=== PATIENT | male | born 1955 | race Caucasian/White ===

== ENCOUNTER → 2016-10-24 | Outpatient (CLI) | payer MEDICARE, OTHER ==
[~2016-10-24] MED LIST: ALBUTEROL17 GM INH; B/P MED; CLARITIN10 M2 PO; DOXYCYCLINE PO; DOXYCYCLINE150 MG PO; GLYBURIDE-METFO1 TA3 PO; HYCODAN PO; IBUPROFEN800 MG PO; KEFLEX PO; LISINOPRIL10 MG PO; NAMENDA10 MG PO; NORFLEX100 M1 PO; PAIN MED; PERCOCET 10/3251 TAB PO; ROBITUSSIN-DM120 ML PO; VICODIN 5/500 T1 TAB PO; VICODIN PO; ZITHROMAX PO; [UNRECOGNIZED DRUG - REMARK]; [UNRECOGNIZED DRUG - REMARK]
--- NOTE | ~2016-10-24 | MR113 ---
[facility] A Service of [facility] RADIOLOGY TEXT RESULTS PATIENT: JAIME SCHAFER LOCATION: [facility] : 57 UNIT #: [id number] AGE: [address]: Nazia Kennedy MD SEX: M ORDER DR: [id number] [address] [address] [id number] O MR#: [id number] #: [id number] NAME: JAIME SCHAFER : 1955 SEX: M STUDY DATE/TIME: 10/24/2016 11:41 UNIT: [facility] ROOM: STUDY DESCRIPTION: MR Lumbar Wo Contrast Attending Physician: Nazia Kennedy M.D. Referring Physician: Nazia Kennedy M.D. Ordering Physician: Nazia Kennedy M.D. Primary Care Physician: Nazia Kennedy M.D. MRI CENTER REPORT This report is preliminary unless electronic signature is present. EXAM MRI lumbar spine without HISTORY Low back pain. No specific injury or history of lumbar spine surgery. Patient complains of chronic low back pain for 10 years with worsening recently in the past 1 year resulting in pain into the bilateral lower extremities with weakness. No history of cancer. COMMENT MRI of the lumbar spine was performed without contrast using routine 1.5T imaging technique on a wide-bore system. There are comparison plain films from 12/02/2005. Redemonstrated is grade 1 anterolisthesis of L4 on L5 secondary to facet arthritis measuring about 5 mm. The intervertebral discs are desiccated at L5-S1 and to a lesser extent L4-5. There is severe loss of disc height at L5-S1 with endplate spondylosis and predominantly type 2 marrow endplate degenerative changes. There is chronic anterior wedging at T12 with mild exaggeration of kyphosis associated with it. The conus medullaris terminates at upper aspect of L1 and is normal. At T12-L1, there is small right paramedian disc extrusion extending slightly caudad from the disc level but remaining contiguous with it. There is mild effacement of the anterior thecal sac. There is no foraminal impingement. At L1-2, there is mild bilateral facet degenerative change. There is no canal stenosis or foraminal compromise. At L2-3, mild bilateral facet hypertrophy but no canal or foraminal impingement. At L3-4, there is mild right greater than left side facet degenerative STS. [facility] A Service of [facility] RADIOLOGY TEXT RESULTS PATIENT: JAIME SCHAFER LOCATION: [facility] : 57 UNIT #: [id number] AGE: [address]: Nazia Kennedy MD SEX: M ORDER DR: chevy. There is no canal stenosis or significant foraminal impingement. At L4-5, there is severe facet arthritis and moderate ligamentum flavum thickening. There is a broad posterior pseudo disc protrusion associated with the anterolisthesis of L4 on L5. The combination of findings result in fairly severe canal stenosis with mass effect on the bilateral lateral recesses and there is mild to moderate left greater than right side foraminal narrowing. On axial imaging, I believe there is a superimposed small left posterolateral protrusion impinging upon expected location left L4 root lateral to the foramen also. At L5-S1, there is mild left greater than right side facet degenerative change. There is concentric desiccated disc bulging and endplate spondylosis which extends into the foramina. There is mild right side foraminal narrowing. There is mild effacement of the anterior thecal sac and mass effect on the right lateral recess but no significant central canal stenosis. Partly seen is some arthritis in the sacroiliac joints. Partly seen is a probable left renal cyst about 5 mm in diameter and too small to characterize accurately further at this time. IMPRESSION Lumbar degenerative change detailed above with findings most significant appearing radiographically at the L4-5 level where there is grade 1 anterolisthesis of L4 on L5 secondary to facet arthritis. This is associated with fairly severe canal stenosis and mass effect on the bilateral lateral recesses. Also concern for a small left posterolateral protrusion lateral to the left-side L4-5 foramen and impinging upon expected location of the left L4 root lateral to the foramen. Please refer to the multiple level findings in the comment section and correlate with the patient's symptoms. Dictated by... Noy Rolon M.D. THIS IS AN ELECTRONICALLY VERIFIED REPORT Noy Rolon M.D. at 10/25/2016 6:01 PM CISCO/hebert TD: 10/25/2016 13:21 JOB #: [id number] MRI CENTER REPORT Page 1 of 1
== END | disposition home or self-care (01) ==
LOC: SMRI 10:50
DX: M54.5 Low back pain (principal); M47.896 Other spondylosis, lumbar region; M43.16 Spondylolisthesis, lumbar region
CPT/HCPCS: 72148